=== PATIENT | female | born 1960 | race Caucasian/White ===

== ENCOUNTER 2016-08-19 16:12 | Emergency (ER) | payer MEDICAID ==
[2016-08-19 16:20] VITALS: BP 115/75
--- NOTE | 2016-08-19 16:40 | ED Physician Documentation ---
PD HPI HEENT - Stated complaint Stated Complaint: BRUISING FROM TEETH EXTRACTION - Chief complaint Chief Complaint: General - History obtained from History obtained from: Patient - History of Present Illness Timing - onset: How many weeks ago (1 week ago had dental extractions of all teeth, while on Coumadin. Had some local bleeding of teeth sockets. Noted some bruising develop next day in gum and then more into jaw, anterior neck and then upper chest over next few days. She had not had her COumadin level checked since procedure. Taking pain meds and had run out. She is not taking antibiotics.) Timing - details: Gradual onset (of the bruising) Location: No: Throat Worsens: No: Swalllowing Associated symptoms: No: Fever, Congestion, Rhinorrhea, Cough Recently seen: Clinic (dental extractions 08/12 as noted above.) Review of Systems Constitutional: denies: Fever, Chills Nose: denies: Rhinorrhea / runny nose, Congestion Throat: reports: Dental pain / toothache (extractions sites still hurt). denies : Sore throat Cardiac: denies: Chest pain / pressure, Palpitations Respiratory: denies: Dyspnea, Cough GI: reports: Nausea. denies: Vomiting, Diarrhea Endocrine: reports: Easy bruising / bleeding PD PAST MEDICAL HISTORY - Past Medical History Cardiovascular: Congestive heart failure, Hypertension, Atrial fibrillation Respiratory: COPD - Present Medications Home Medications: Ambulatory Orders Medication Instructions Recorded Confirmed Albuterol 1 neb PO PRN PRN 08/19/16 08/19/16 Budesonide/Formoterol Fumarate 1 inhaler PO BID 08/19/16 08/19/16 [Symbicort 160-4.5 Mcg Inhaler] Carvedilol 25 mg PO 08/19/16 Gabapentin 600 mg PO PRN PRN 08/19/16 08/19/16 Hydrochlorothiazide 25 mg PO DAILY 08/19/16 08/19/16 Hydrocodone/Acetaminophen [[place] 1 each PO Q6H PRN #20 tablet 08/19/16 5-325 Tablet] Lisinopril 40 mg PO DAILY 08/19/16 08/19/16 Warfarin [Coumadin] 10 mg PO DAILY 08/19/16 08/19/16 - Allergies Allergies/Adverse Reactions: Allergies Allergy/AdvReac Type Severity Reaction Status Date / Time codeine Allergy Unknown Verified 08/19/16 16:19 - Social History Does the pt smoke?: Yes Smoking Status: Current every day smoker Does the pt drink ETOH?: No Does the pt have substance abuse?: No - Immunizations Immunizations are current?: Yes - POLST Patient has POLST: No PD ED PE NORMAL - Vitals Vital signs reviewed: Yes - General General: Alert and oriented X 3, Well developed/nourished - HEENT HEENT: Moist mucous membranes, Pharynx benign, Other (post extraction of all her teeth, with healing sockets and no obvious infection/drainage. Gums with some bruising front lower. There is bruising deeper purple and not tender, on lower gums, jaw, underside tongue, anterior neck and anterior upper chest to just below clavicles.) - Neck Neck: Supple, no meningeal sign, No adenopathy - Cardiac Cardiac: RRR, No murmur - Respiratory Respiratory: Clear bilaterally - Derm Derm: Normal color, Warm and dry - Neuro Neuro: Alert and oriented X 3, No motor deficit, Normal speech Results - Vitals Vitals: Vital Signs - 24 hr 08/19/16 16:16 Temperature 36.1 C L Heart Rate 82 Respiratory 18 Rate Blood Pressure 115/75 O2 Saturation 96 Oxygen O2 Source Room air - Labs Labs: Laboratory Tests 08/19/16 17:08 Whole Blood INR 2.2 H PD MEDICAL DECISION MAKING - ED course Complexity details: considered differential (dramatic appearance of bruising around chin/ anterior neck and upper chest, in area of platysma muscle. It is not tender and is deeper purple, c/w old blood coming down with gravity. Gums appear healing without obvious infection. ), d/w patient Departure - Departure Disposition: 01 Home, Self Care Clinical Impression: Anticoagulant long-term use Status post tooth extraction Qualifiers: Tooth loss class: unspecified tooth loss Qualified Code(s): K08.409 - Partial loss of teeth, unspecified cause, unspecified class Facial bruising Qualifiers: Encounter type: initial encounter Qualified Code(s): S00.83XA - Contusion of other part of head, initial encounter Condition: Stable Record reviewed to determine appropriate education?: Yes Instructions: Extraction Tooth Mouth Care After Prescriptions: Hydrocodone/Acetaminophen [[place] 5-325 Tablet] 1 each PO Q6H PRN #20 tablet PRN Reason: Pain Comments: Your INR today is 2.2, so continue your usual Coumadin dosing. Tylenol or Hydrocodone as needed for pains. Continue oral antiseptic rinse 2-3 times daily. The bruising of the face/neck will slowly fade over 1-2 weeks, and is mainly gravity effect of blood from the sinus and jaw area. Discharge Date/Time: 08/19/16 17:31
[2016-08-19] MEDS ORDERED: HYDROcod/ACETAM 5/325 MG TABLET PO STA (17:00)
[2016-08-19] MEDS ORDERED: HYDROcod/ACETAM 5/325 MG TABLET ONE (17:04)
== END 2016-08-19 17:31 | disposition home or self-care (01) ==
LOC: ED 16:12
DX: S00.532A Contusion of oral cavity, initial encounter (principal); S00.83XA Contusion of other part of head, initial encounter; S10.93XA Contusion of unspecified part of neck, initial encounter; S20.219A Contusion of unspecified front wall of thorax, initial encounter; Y84.8 Other medical procedures as the cause of abnormal reaction of the patient, or of later complication, without mention of misadventure at the time of the procedure; Z98.818 Other dental procedure status; Z79.01 Long term (current) use of anticoagulants; I48.91 Unspecified atrial fibrillation; I10 Essential (primary) hypertension; F17.200 Nicotine dependence, unspecified, uncomplicated
CPT/HCPCS: 85610; 99283; A9270

== ENCOUNTER 2019-03-07 21:05 | Outpatient (CLI) | payer MEDICAID | END 2019-03-07 21:06 | disposition critical access hospital (66) | LOC: EMS 21:05 | PROVIDERS: ATTEND Surgery | DX: R29.810 Facial weakness (principal); R53.1 Weakness; R47.81 Slurred speech | CPT/HCPCS: A0425; A0427; A0999 ==

== ENCOUNTER 2019-03-07 21:14 | Emergency (ER) | payer MEDICAID ==
[2019-03-07] MEDS ORDERED: IOVERSOL 320 100 ML VIAL IVP ONE ×3 (21:24→22:05)
--- NOTE | 2019-03-07 21:24 | ED Physician Documentation ---
PD HPI FOCAL NEURO - Stated complaint Stated Complaint: STROKE LIKE SYMPTOMS - History obtained from History obtained from: Patient, Family, EMS - History of Present Illness Timing - onset: Today Timing - duration: Hours Timing - details: Still present Time of symptom onset unknown: Time of onset unknown Severity of deficit: Severe Weakness: Face, Arm, Hand, Left Numbness: No: Face, Arm, Hand, Leg, Foot, Right, Left Associated symptoms: Headache. No: Nausea / vomiting, Seizure Contributing factors: positive: Anticoagulated Baseline status: positive: A&OX3, ambulatory, indep Similar symptoms before: Has not had sx before Recently seen: Not recently seen Review of Systems Constitutional: denies: Fever Eyes: denies: Decreased vision Ears: denies: Ear pain Nose: reports: Congestion Throat: denies: Sore throat Cardiac: denies: Chest pain / pressure, Palpitations Respiratory: reports: Dyspnea, Cough GI: denies: Nausea, Vomiting : denies: Dysuria, Frequency Skin: denies: Rash Musculoskeletal: denies: Neck pain, Back pain, Extremity pain Neurologic: reports: Generalized weakness, Focal weakness, Headache. denies: Difficulty speaking, Head injury, LOC PD PAST MEDICAL HISTORY - Past Medical History Cardiovascular: Congestive heart failure, Hypertension, Atrial fibrillation Respiratory: COPD - Present Medications Home Medications: Ambulatory Orders Medication Instructions Recorded Confirmed Albuterol 1 neb PO PRN PRN 08/19/16 08/19/16 Budesonide/Formoterol Fumarate 1 inhaler PO BID 08/19/16 08/19/16 [Symbicort 160-4.5 Mcg Inhaler] Gabapentin 300 mg PO PRN PRN 08/19/16 08/19/16 Warfarin [Coumadin] 5 mg PO DAILY 08/19/16 08/19/16 carvediloL [Carvedilol] 25 mg PO 08/19/16 hydroCHLOROthiazide 25 mg PO DAILY 08/19/16 08/19/16 [Hydrochlorothiazide] lisinopriL [Lisinopril] 40 mg PO DAILY 08/19/16 08/19/16 Ondansetron [Zuplenz] 4 mg PO QID PRN 03/07/19 03/07/19 hydrOXYzine HCL [Hydroxyzine HCl] 25 mg ORAL DAILY 03/07/19 03/07/19 oxyCODONE [Roxicodone] 5 mg PO Q4-6H 03/07/19 03/07/19 - Allergies Allergies/Adverse Reactions: Allergies Allergy/AdvReac Type Severity Reaction Status Date / Time codeine Allergy Unknown Verified 08/19/16 16:19 - Social History Does the pt smoke?: Yes Smoking Status: Current every day smoker Does the pt drink ETOH?: No Does the pt have substance abuse?: No - Immunizations Immunizations are current?: Yes - POLST Patient has POLST: No PD ED PE NORMAL - Vitals Vital signs reviewed: Yes (hypertensive ) - General General: No acute distress, Well developed/nourished, Other (58-year-old female with a blunted affect and obvious left facial droop has her gaze deviated to the right) - HEENT HEENT: Atraumatic, Other (The eyes are forcefully deviated to the right ) - Neck Neck: Supple, no meningeal sign, No bony TTP - Cardiac Cardiac: No murmur, Other (Irregularly irregular rate and rhythm) - Respiratory Respiratory: No respiratory distress, Clear bilaterally - Abdomen Abdomen: Soft, Non tender - Back Back: No CVA TTP, No spinal TTP - Derm Derm: Normal color, Warm and dry, No rash - Extremities Extremities: No deformity, No edema, No calf tenderness / cord - Neuro Neuro: Normal speech, Other (Acute left hemiparesis with forced right-sided deviation of the eyes.) Eye Opening: To Voice Motor: Obeys Commands Verbal: Oriented GCS Score: 14 - Psych Psych: Normal mood, Normal affect NIHSS - Time Time: 21:20 - Level of Consciousness Level of consciousness: (1) Not alert, but arousable by minor stimulation to obey, or answer LOC Questions: (0) Answers both Q's correct LOC Commands: (0) Performs both correctly - Gaze Best Gaze: (2) Forced deviation - Visual Visual: (0) No loss - Facial Palsy Facial Palsy: (3) Complete paralysis - Motor Arms (both separate) Motor Arm (right): (0) No drift Motor Arm (left): (3) No effort against gravity - Motor Legs (both separate) Motor Leg (right): (0) No drift Motor Leg (left): (3) No effort against gravity - Limb Ataxia Limb Ataxia: (2) Present in 2 limbs - Sensory Sensory: (0) Normal - Best Language Best Language: (0) No aphasia - Dysarthria Dysarthria: (1) [id number] dysarthria - Extinction and Inattention (formally neg Extinction and inattention: (1) Visual,tactile,auditory,spatial, or personal inattention - Total Score/Results Total Score/Result: 16 Results - Vitals Vitals: Vital Signs - 24 hr 03/07/19 03/07/19 03/07/19 21:16 22:50 23:11 Temperature 37 C Heart Rate 80 86 100 Respiratory 18 13 14 Rate Blood Pressure 158/98 H 131/85 H 114/93 H O2 Saturation 96 99 99 Oxygen O2 Source Room air - EKG (time done) 2151 Rate: Rate (enter#) (89) Rhythm: Atrial fibrillation Ischemia: Normal ST segments Compare to prior EKG: Old EKG unavailable Computer interpretation: Agree with computer - Labs Labs: Laboratory Tests 03/07/19 03/07/19 03/07/19 22:00 22:30 22:30 WBC 9.3 RBC 4.26 Hgb 13.4 Hct 40.5 MCV 95.1 MCH 31.5 H MCHC 33.1 RDW 12.8 Plt Count 228 MPV 9.8 Neut # (Auto) 5.5 Lymph # (Auto) 2.6 [place] # (Auto) 0.9 Eos # (Auto) 0.2 Baso # (Auto) 0.1 Absolute Nucleated RBC 0.00 Nucleated RBC % 0.0 PT 18.9 H INR 1.7 H Sodium Potassium Chloride Carbon Dioxide Anion Gap BUN Creatinine Estimated GFR (MDRD) Glucose Lactic Acid Calcium Total Bilirubin AST ALT Alkaline Phosphatase Total Protein Albumin Globulin Albumin/Globulin Ratio Lipase Urine Color YELLOW Urine Clarity CLEAR Urine pH 6.5 Ur Specific [place] <=1.005 Urine Protein NEGATIVE Urine Glucose (UA) NEGATIVE Urine Ketones NEGATIVE Urine Occult Blood TRACE-INTA Urine Nitrite NEGATIVE Urine Bilirubin NEGATIVE Urine Urobilinogen 0.2 (NORMAL) Ur Leukocyte Esterase SMALL H Urine RBC 0-5 Urine WBC 11-25 H Ur Squamous Epith Cells RARE Squamous Urine Bacteria Many H Ur Microscopic Review INDICATED Urine Culture Comments INDICATED 03/07/19 03/07/19 22:30 22:30 WBC RBC Hgb Hct MCV MCH MCHC RDW Plt Count MPV Neut # (Auto) Lymph # (Auto) [place] # (Auto) Eos # (Auto) Baso # (Auto) Absolute Nucleated RBC Nucleated RBC % PT INR Sodium 128 L Potassium 4.3 Chloride 91 L Carbon Dioxide 26 Anion Gap 11.0 BUN 38 H Creatinine 1.7 H Estimated GFR (MDRD) 31 L Glucose 83 Lactic Acid 0.9 Calcium 8.9 Total Bilirubin 1.0 AST 27 ALT 20 Alkaline Phosphatase 78 Total Protein 7.1 Albumin 3.8 Globulin 3.3 Albumin/Globulin Ratio 1.2 Lipase 24 Urine Color Urine Clarity Urine pH Ur Specific [place] Urine Protein Urine Glucose (UA) Urine Ketones Urine Occult Blood Urine Nitrite Urine Bilirubin Urine Urobilinogen Ur Leukocyte Esterase Urine RBC Urine WBC Ur Squamous Epith Cells Urine Bacteria Ur Microscopic Review Urine Culture Comments - Rads (name of study) CT head w/o Radiology: Prelim report reviewed (Impression: 1. Very large acute to subacute right MCA territory ischemic infarct, aspects 1-2. 2 No acute hemorrhage.), EMP read indepedently, See rad report CTA head Radiology: Prelim report reviewed (Impression: 1. No abnormal brain parenchymal enhancement. 2. Patent dural venous sinuses. 3. 4 mm field defect in the posterior division of the right M2 segment with 1 mm filling duct defect in the anterior division of the right M2 segment. These findings are suspicious for acute thromboembolus. Distal right MCA vessels are patent. 4. No evidence of aneurysm, AVM, or critical stenosis in the remaining intracranial and extracra nial arteries.), EMP read indepedently, See rad report CTA neck Radiology: Prelim report reviewed (Impression: 1. No abnormal brain parenchymal enhancement. 2. Patent dural venous sinuses. 3. 4 mm filling defect in the posterior division of the right M2 segment with a 1 mm filling defect in the anterior division of the right M2 segment. These findings are suspicious for acute thromboembolus. Distal right MCA vessels are patent. 4. No evidence of aneurysm, AVM, or critical stenosis in the remaining intracranial and extracranial arteries.), EMP read indepedently, See rad report chest Radiology: Prelim report reviewed (Impression: 1. Prominent bronchovascular markings which may be related to mild vascular congestion with interstitial edema. 2. Mild opacity in the right mid lung, possibly atelectasis or subtle infiltrate. 3. Mild enlargement of cardiac silhouette.), EMP read indepedently, See rad report Procedures - IVC sono (time) 5321 Bedside IVC sono: IVC measures (cm) (1.49), IVC collapsed c insp (cm) (complete), Dehydration (mild at 500ml deficit estimated.) PD MEDICAL DECISION MAKING - ED course Complexity details: reviewed results, re-evaluated patient, considered differential, d/w patient, d/w family ED course: 58-year-old female with a recent URI that was improving has been found by her family today in her room sitting in the chair they assume since last night. She has forced deviation of her gaze to the right and left hemiparesis. Her CT study is consistent with a right MCA distribution stroke and there are clots present. The extent of the ischemia is extensive and the exact time of onset unknown. The neurologist Dr. Jacobo Burger at [facility] is consulted in the case and recommends conservative treatment. He recommends postop care to be done here. The hospitalist here is consulted in the case and he is reluctant to care for the patient here as she is young and has an extensive stroke. He is concerned about complications occurring acutely. The stroke doctor Dr. Burger at [facility] calls us back here after reviewing her images and recommends she be transferred to their service. The patient has additional findings including bacteria and white blood cells in the urine and an infiltrate on her chest x-ray in the right middle lobe. She is administered Rocephin intravenously. Her volume is just below normal with IVC of 1.5 cm collapsing completely with respiration.She is administered saline a 500 mL bolus and [address] Hampton the hospitalist at [facility] be the accepting physician and recommends administration of aspirin. Departure - Departure Disposition: 02 Transfer Acute Care Hosp Clinical Impression: Cerebrovascular accident (CVA) Qualifiers: CVA mechanism: embolism Precerebral and cerebral artery: middle cerebral artery Laterality of affected vessel: right Qualified Code(s): I63.411 - Cerebral infarction due to embolism of right middle cerebral artery UTI (urinary tract infection) Qualifiers: Urinary tract infection type: acute cystitis Hematuria presence: without hematuria Qualified Code(s): N30.00 - Acute cystitis without hematuria Pneumonia Qualifiers: Pneumonia type: due to unspecified organism Laterality: right Lung location: middle lobe of lung Qualified Code(s): J18.9 - Pneumonia, unspecified organism Condition: Serious
--- NOTE | 2019-03-07 22:05 | CT Report ---
Reason: L sided weakness Procedure Date: 03/07/2019 Accession Number: [id number] / [id number] Procedure: CT - Head W/O Stroke Protocol CPT Code: Final Report FULL RESULT: EXAM: CT HEAD EXAM DATE: 03/07/2019 09:26 PM. CLINICAL HISTORY: Left side weakness. COMPARISON: None. TECHNIQUE: Multiaxial CT images were obtained from the foramen magnum to the vertex. Reformats: Sagittal and coronal. IV contrast: None. In accordance with CT protocol optimization, one or more of the following dose reduction techniques were utilized for this exam: automated exposure control, adjustment of mA and/or KV based on patient size, or use of iterative reconstructive technique. FINDINGS: Parenchyma: No acute hemorrhage. Extensive confluent abnormal hypodensity with mild swelling involving much of the right MCA territory including frontal, temporal and parietal cortex, insula/operculum and basal ganglia. Findings are consistent with large acute to subacute ischemic infarct. Aspects 1-2. Small old inferior left cerebellar infarct, approximately 8 mm. Overall normal brain volume for age. Extraaxial Spaces: Developing sulcal effacement from the swelling and mass-effect associated with presumed infarct of the right cerebral hemisphere. No abnormal expansile subdural collection. Ventricles: No hydrocephalus. Sinuses and Orbits: Borderline findings of bilateral exophthalmos. Relatively prominent intraorbital fat. No other focal space-occupying intraorbital lesion. No acute sinus or mastoid opacity. Bones: No evidence of fracture or calvarial defect. Other: None. IMPRESSION: 1. Very large acute to subacute right MCA territory ischemic infarct, aspects 1-2. 2. No acute hemorrhage. RADIA The critical test notification system was initiated by Dr. Yuan Cadet at 09:55 PM on 03/07/2019. The above critical test findings were discussed with Dr. Chon Sultana by Dr. Yuan Cadet at 09:57 PM on 03/07/2019.
[2019-03-07 22:11] LABS: BILIRUBIN,URINE NEGATIVE (NEGATIVE); GLUCOSE, URINE (UA) NEGATIVE (NEGATIVE); KETONES,URINE (UA) NEGATIVE (NEGATIVE); LEUKOCYTE ESTERASE, URINE SMALL (NEGATIVE); NITRITE,URINE NEGATIVE (NEGATIVE); OCCULT BLOOD,URINE TRACE-INTA (NEGATIVE); PH,URINE 6.5 PH (5.0-7.5); PROTEIN,URINE NEGATIVE (NEGATIVE); UROBILINOGEN,URINE 0.2 (NORMAL) E.U./dL (NORMAL)
[2019-03-07 22:12] LABS: CLARITY,URINE CLEAR (CLEAR)
[2019-03-07 22:19] LABS: BACTERIA,URINE Many /HPF (None Seen); RBC,URINE 0-5 /HPF (0-5); SQUAMOUS EPITHELIAL CELL,UR RARE Squamous (<= Few)
--- NOTE | 2019-03-07 22:21 | CT Report ---
Reason: L sided weakness Procedure Date: 03/07/2019 Accession Number: [id number] / [id number] Procedure: CT - ANGIO HEAD W/WO CPT Code: Final Report FULL RESULT: EXAM: CT ANGIOGRAM HEAD AND NECK. CT SCAN HEAD WITH CONTRAST. EXAM DATE: 03/07/2019 09:48 PM. CLINICAL HISTORY: Left-sided weakness. COMPARISON: HEAD W/O STROKE PROTOCOL 03/07/2019 9:26 PM NECK ANGIO 03/07/2019 9:43 PM. TECHNIQUE: Routine axial helical CTA imaging was performed from the aortic arch through the [place]. Routine axial CT imaging of the head was performed following contrast administration. Reconstructions: Routine multiplanar 3D MIP reconstructions. IV contrast: Opti 320 80 mL. NASCET Criteria are used for stenosis measurements. In accordance with CT protocol optimization, one or more of the following dose reduction techniques were utilized for this exam: automated exposure control, adjustment of mA and/or KV based on patient size, or use of iterative reconstructive technique. FINDINGS: No abnormal brain parenchymal enhancement is appreciated. CT ANGIOGRAM EXTRACRANIAL CIRCULATION: Mild calcified plaque is present at the aortic arch. However, no high-grade stenosis of the great vessel origins is seen. Right Carotid: The common, internal, and external carotid arteries are patent. Minimal calcified plaque is seen at the carotid bifurcation without hemodynamically significant stenosis. Left Carotid: The common, internal, and external carotid arteries are patent. Minimal calcified plaque is noted at the carotid bifurcation without hemodynamically significant stenosis. Vertebrals: Calcified plaque is present at the origin of the left vertebral artery which were arises directly from the aortic arch with stenosis measuring approximately 50% (image 73, series 4). The right vertebral artery origin is widely patent. The right vertebral artery is dominant. No hemodynamically significant stenosis is seen in the remaining cervical courses. CT ANGIOGRAM INTRACRANIAL CIRCULATION: The internal carotid arteries are patent from the superior cervical to the supraclinoid portions. Minimal calcified plaque is present in the bilateral carotid siphons without stenosis. The right A1, A2, M1, and M2 segments are patent. The right A1 and A2 segments are patent. There is a filling defect within the right posterior division of the M2 segment 4 mm length (image 62, series 8) and a 1 mm filling defect in the anterior division of the right M2 segment (image 62, series 8), suspicious for acute thromboembolism. Distal right MCA branches are opacified. A normal caliber anterior communicating artery is present. In the posterior circulation, the bilateral V4 segments are patent with right-sided dominance. There is a probable left AICA/PICA variant. The right PICA is well demonstrated. The basilar artery is widely patent throughout its course to the terminus. There is normal contrast opacification in the superior cerebellar and posterior cerebral arteries. Small bilateral posterior communicate arteries are present. The dural venous sinuses are patent. Other: Subsegmental atelectasis is noted in the right upper lung. The airways patent. Mild to moderate degenerative changes are present at the cervical spine with levoscoliosis in the upper thoracic region. No acute abnormality is seen in the remaining soft tissues of the neck. IMPRESSION: 1. No abnormal brain parenchymal enhancement. 2. Patent dural venous sinuses. 3. 4 mm filling defect in the posterior division of the right M2 segment with 1 mm filling defect in the anterior division of the right M2 segment. These findings are suspicious for acute thromboembolus. Distal right MCA vessels are patent. 4. No evidence of aneurysm, AVM, or critical stenosis in the remaining intracranial and extracranial arteries. RADIA The critical result notification system was initiated by Dr. Ledy Velazquez at 10:12 PM on 03/07/2019. The above critical result findings were discussed with Dr. Sultana by Dr. Ledy Velazquez at 10:14 PM on 03/07/2019.
[2019-03-07] MEDS ORDERED: cefTRIAXone 1 GM in SODIUM CHLORIDE 0.9% MINIBAG 100 ML IV STA (22:30)
[2019-03-07] MEDS ORDERED: GABAPENTIN 100 MG CAPSULE PO STA (22:30)
--- NOTE | 2019-03-07 22:30 | XRAY Report ---
Reason: cough weakness Procedure Date: 03/07/2019 Accession Number: [id number] / [id number] Procedure: XR - Chest 1 View X-Ray CPT Code: 52034 Final Report FULL RESULT: EXAM: CHEST RADIOGRAPHY EXAM DATE: 03/07/2019 09:59 PM. CLINICAL HISTORY: Cough weakness. COMPARISON: None. TECHNIQUE: 1 view. FINDINGS: Lungs/Pleura: Prominent bronchovascular markings throughout the lungs with mild opacity in right mid lung along the region of right minor fissure. No lobar consolidation. No significant pleural effusion or pneumothorax. Mediastinum: Mild enlargement of cardiac silhouette. Atherosclerosis at aortic arch. Other: None. IMPRESSION: 1. Prominent bronchovascular markings which may be related to mild vascular congestion with interstitial edema. 2. Mild opacity in right mid lung, possibly atelectasis or subtle infiltrate. 3. Mild enlargement of cardiac silhouette. RADIA
[2019-03-07 22:36] LABS: BASOPHILS # (AUTO) 0.1 10^3/uL (0.0-0.1); BASOPHILS % (AUTO) 0.5 %; EOSINOPHILS # (AUTO) 0.2 10^3/uL (0.0-0.7); EOSINOPHILS % (AUTO) 1.7 %; HGB - HEMOGLOBIN 13.4 g/dL (12.0-16.0); LYMPHOCYTES # (AUTO) 2.6 10^3/uL (1.5-3.5); LYMPHOCYTES % (AUTO) 27.9 %; MEAN CORPUSCULAR HEMOGLOBIN 31.5 pg (27.0-31.0); MEAN CORPUSCULAR HGB CONC 33.1 g/dL (32.0-36.0); MEAN CORPUSCULAR VOLUME 95.1 fL (81.0-99.0); MEAN PLATELET VOLUME 9.8 fL (7.9-10.8); MONOCYTES # (AUTO) 0.9 10^3/uL (0.0-1.0); MONOCYTES % (AUTO) 9.4 %; NEUTROPHILS # (AUTO) 5.5 10^3/uL (1.5-6.6); NEUTROPHILS % (AUTO) 59.6 %; PLT - PLATELET COUNT 228 10^3/uL (130-450); RED BLOOD COUNT 4.26 10^6/uL (4.20-5.40); RED CELL DISTRIBUTION WIDTH 12.8 % (12.0-15.0); WHITE BLOOD COUNT 9.3 x10^3/uL (4.8-10.8)
[2019-03-07 22:43] LABS: INR 1.7 (0.8-1.2); PT - PROTHROMBIN TIME 18.9 secs (9.9-12.6)
[2019-03-07 22:51] LABS: ALBUMIN 3.8 g/dL (3.2-5.5); ALBUMIN/GLOBULIN RATIO 1.2 (1.0-2.2); CALCIUM 8.9 mg/dL (8.5-10.3); CREATININE 1.7 mg/dL (0.4-1.0); TOTAL PROTEIN 7.1 g/dL (6.7-8.2)
[2019-03-07] MEDS ORDERED: SODIUM CHLORIDE 0.9% 1,000 ML IV ONE (23:43)
[2019-03-07] MEDS ORDERED: SODIUM CHLORIDE 0.9% 500 ML IV ONE (23:43)
[2019-03-07] MEDS ORDERED: ASPIRIN CHEW 81 MG TABLET PO STA (23:47)
[2019-03-08] MEDS ORDERED: ACETAMINOPHEN 1,000 MG/100 ML 100 ML IV STA (04:20)
[2019-03-08 05:01] VITALS: BP 153/94
== END 2019-03-08 06:20 | disposition short-term general hospital (02) ==
LOC: EDUNIT# → ED 21:14
DX: I63.411 Cerebral infarction due to embolism of right middle cerebral artery (principal); R29.810 Facial weakness; G81.94 Hemiplegia, unspecified affecting left nondominant side; R29.716 NIHSS score 16; E86.0 Dehydration; N30.00 Acute cystitis without hematuria; J18.9 Pneumonia, unspecified organism; I10 Essential (primary) hypertension; I48.91 Unspecified atrial fibrillation; Z79.01 Long term (current) use of anticoagulants; J44.9 Chronic obstructive pulmonary disease, unspecified; F17.200 Nicotine dependence, unspecified, uncomplicated
CPT/HCPCS: 36415; 70450; 70496; 70498; 71045; 80053; 81001; 83605; 83690; 85025; 85610; 87040; 87077; 87086; 87181; 93005; 96361; 96365; 96367; 99285; A9270; J0131; Q9967; 81003

== ENCOUNTER 2019-07-20 08:00 | Outpatient (CLI) | payer MEDICAID ==
[2019-07-20 12:18] LABS: BASOPHILS % (AUTO) 0.5 %; EOSINOPHILS # (AUTO) 0.2 10^3/uL (0.0-0.7); EOSINOPHILS % (AUTO) 2.1 %; HGB - HEMOGLOBIN 13.7 g/dL (12.0-16.0); LYMPHOCYTES # (AUTO) 2.5 10^3/uL (1.5-3.5); LYMPHOCYTES % (AUTO) 32.6 %; MEAN CORPUSCULAR HEMOGLOBIN 31.2 pg (27.0-31.0); MEAN CORPUSCULAR HGB CONC 33.2 g/dL (32.0-36.0); MEAN CORPUSCULAR VOLUME 94.1 fL (81.0-99.0); MEAN PLATELET VOLUME 11.6 fL (7.9-10.8); MONOCYTES # (AUTO) 0.6 10^3/uL (0.0-1.0); MONOCYTES % (AUTO) 7.3 %; NEUTROPHILS # (AUTO) 4.4 10^3/uL (1.5-6.6); NEUTROPHILS % (AUTO) 57.1 %; PLT - PLATELET COUNT 154 10^3/uL (130-450); RED BLOOD COUNT 4.39 10^6/uL (4.20-5.40); RED CELL DISTRIBUTION WIDTH 13.7 % (12.0-15.0); WHITE BLOOD COUNT 7.7 x10^3/uL (4.8-10.8)
[2019-07-20 12:31] LABS: ALBUMIN 3.5 g/dL (3.2-5.5); ALBUMIN/GLOBULIN RATIO 0.9 (1.0-2.2); CALCIUM 9.5 mg/dL (8.5-10.3); CREATININE 0.8 mg/dL (0.4-1.0); TOTAL PROTEIN 7.3 g/dL (6.7-8.2)
== END 2019-07-20 23:59 | disposition home or self-care (01) ==
LOC: LAB.WCP 08:00
PROVIDERS: ATTEND Family Medicine
DX: I10 Essential (primary) hypertension (principal); E05.00 Thyrotoxicosis with diffuse goiter without thyrotoxic crisis or storm
CPT/HCPCS: 80053; 84443; 85025

== ENCOUNTER 2019-08-11 08:00 | Outpatient (CLI) | payer MEDICAID ==
[2019-08-11 09:55] LABS: BILIRUBIN,URINE NEGATIVE (NEGATIVE); GLUCOSE, URINE (UA) NEGATIVE (NEGATIVE); KETONES,URINE (UA) NEGATIVE (NEGATIVE); LEUKOCYTE ESTERASE, URINE SMALL (NEGATIVE); NITRITE,URINE POSITIVE (NEGATIVE); OCCULT BLOOD,URINE TRACE-INTA (NEGATIVE); PH,URINE 5.5 PH (5.0-7.5); PROTEIN,URINE NEGATIVE (NEGATIVE); UROBILINOGEN,URINE 0.2 (NORMAL) E.U./dL (NORMAL)
[2019-08-11 10:03] LABS: CLARITY,URINE CLEAR (CLEAR)
[2019-08-11 10:13] LABS: BACTERIA,URINE Few /HPF (None Seen); RBC,URINE 0-5 /HPF (0-5); SQUAMOUS EPITHELIAL CELL,UR FEW Squamous (<= Few)
== END 2019-08-11 23:59 | disposition home or self-care (01) ==
LOC: LAB.R 08:00
PROVIDERS: ATTEND Family Medicine
DX: R30.0 Dysuria (principal)
CPT/HCPCS: 81001; 81003; 87077; 87086; 87181

== ENCOUNTER 2019-08-31 10:50 | Outpatient (CLI) | payer MEDICAID | END 2019-08-31 23:59 | disposition home or self-care (01) | LOC: LAB.R 10:50 | PROVIDERS: ATTEND Family Medicine | DX: Z11.59 Encounter for screening for other viral diseases (principal) | CPT/HCPCS: 81599 ==

== ENCOUNTER 2019-09-05 14:03 | Outpatient (CLI) | payer MEDICAID | END 2019-09-05 14:04 | disposition critical access hospital (66) | LOC: EMS 14:03 | PROVIDERS: ATTEND Surgery | DX: M79.602 Pain in left arm (principal); R30.9 Painful micturition, unspecified; R06.02 Shortness of breath; R51 Headache | CPT/HCPCS: A0425; A0429; A0999 ==

== ENCOUNTER 2019-09-05 14:17 | Emergency (ER) | payer MEDICAID ==
[2019-09-05 15:08] LABS: BASOPHILS # (AUTO) 0.1 10^3/uL (0.0-0.1); BASOPHILS % (AUTO) 0.7 %; EOSINOPHILS # (AUTO) 0.2 10^3/uL (0.0-0.7); EOSINOPHILS % (AUTO) 2.1 %; HGB - HEMOGLOBIN 13.9 g/dL (12.0-16.0); LYMPHOCYTES # (AUTO) 3.3 10^3/uL (1.5-3.5); LYMPHOCYTES % (AUTO) 38.8 %; MEAN CORPUSCULAR HEMOGLOBIN 32.4 pg (27.0-31.0); MEAN CORPUSCULAR HGB CONC 33.3 g/dL (32.0-36.0); MEAN CORPUSCULAR VOLUME 97.4 fL (81.0-99.0); MEAN PLATELET VOLUME 10.6 fL (7.9-10.8); MONOCYTES # (AUTO) 0.7 10^3/uL (0.0-1.0); MONOCYTES % (AUTO) 8.2 %; NEUTROPHILS # (AUTO) 4.3 10^3/uL (1.5-6.6); NEUTROPHILS % (AUTO) 49.9 %; PLT - PLATELET COUNT 194 10^3/uL (130-450); RED BLOOD COUNT 4.29 10^6/uL (4.20-5.40); RED CELL DISTRIBUTION WIDTH 14.3 % (12.0-15.0); WHITE BLOOD COUNT 8.6 x10^3/uL (4.8-10.8)
[2019-09-05 15:18] LABS: CALCIUM 9.3 mg/dL (8.5-10.3); CREATININE 0.7 mg/dL (0.4-1.0)
[2019-09-05 16:24] LABS: BILIRUBIN,URINE NEGATIVE (NEGATIVE); CLARITY,URINE CLEAR (CLEAR); GLUCOSE, URINE (UA) NEGATIVE (NEGATIVE); KETONES,URINE (UA) NEGATIVE (NEGATIVE); LEUKOCYTE ESTERASE, URINE SMALL (NEGATIVE); NITRITE,URINE POSITIVE (NEGATIVE); OCCULT BLOOD,URINE NEGATIVE (NEGATIVE); PROTEIN,URINE NEGATIVE (NEGATIVE); UROBILINOGEN,URINE 0.2 (NORMAL) E.U./dL (NORMAL)
[2019-09-05 16:36] LABS: BACTERIA,URINE None Seen /HPF (None Seen); RBC,URINE None Seen /HPF (0-5); SQUAMOUS EPITHELIAL CELL,UR NONE SEEN (<= Few)
[2019-09-05] MEDS ORDERED: cefTRIAXone 1 GM VIAL IVP STA (16:44)
--- NOTE | 2019-09-05 16:46 | ED Physician Documentation ---
History of Present Illness - Stated complaint Stated Complaint: COPD - Chief complaint Chief Complaint: Resp - History obtained from History obtained from: Patient, EMS - History of Present Illness Timing: Today Pain level max: 0 Pain level now: 0 - Additonal information Additional information: Patient complains of dysuria, urgency, frequency. History of recurrent UTIs. No other complaints today. No cough. No fever. No dyspnea. worse with urination. Better with rest. Review of Systems Constitutional: denies: Fever, Chills Respiratory: denies: Cough GI: denies: Abdominal Pain, Nausea, Vomiting, Diarrhea : reports: Dysuria, Frequency, Hesitancy Skin: denies: Rash Musculoskeletal: denies: Neck pain, Back pain Neurologic: denies: Headache PD PAST MEDICAL HISTORY - Past Medical History Cardiovascular: Congestive heart failure, Hypertension, Atrial fibrillation Respiratory: COPD - Present Medications Home Medications: Ambulatory Orders Medication Instructions Recorded Confirmed Albuterol 1 neb PO PRN PRN 08/19/16 08/19/16 Budesonide/Formoterol Fumarate 1 inhaler PO BID 08/19/16 08/19/16 [Symbicort 160-4.5 Mcg Inhaler] Gabapentin 300 mg PO PRN PRN 08/19/16 08/19/16 Warfarin [Coumadin] 5 mg PO DAILY 08/19/16 08/19/16 carvediloL [Carvedilol] 25 mg PO 08/19/16 hydroCHLOROthiazide 25 mg PO DAILY 08/19/16 08/19/16 [Hydrochlorothiazide] lisinopriL [Lisinopril] 40 mg PO DAILY 08/19/16 08/19/16 Ondansetron [Zuplenz] 4 mg PO QID PRN 03/07/19 03/07/19 hydrOXYzine HCL [Hydroxyzine HCl] 25 mg ORAL DAILY 03/07/19 03/07/19 oxyCODONE [Roxicodone] 5 mg PO Q4-6H 03/07/19 03/07/19 Cefdinir 300 mg PO BID #20 capsule 09/05/19 - Allergies Allergies/Adverse Reactions: Allergies Allergy/AdvReac Type Severity Reaction Status Date / Time codeine Allergy Unknown Verified 09/05/19 14:31 - Social History Does the pt smoke?: Yes Smoking Status: Current every day smoker Does the pt drink ETOH?: No Does the pt have substance abuse?: No - Immunizations Immunizations are current?: Yes - POLST Patient has POLST: No PD ED PE NORMAL - Vitals Vital signs reviewed: Yes - General General: Alert and oriented X 3, No acute distress - HEENT HEENT: Moist mucous membranes - Neck Neck: Supple, no meningeal sign - Cardiac Cardiac: RRR, Strong equal pulses - Respiratory Respiratory: No respiratory distress, Clear bilaterally - Abdomen Abdomen: Soft, Non tender, Non distended - Back Back: No CVA TTP, No spinal TTP - Derm Derm: Warm and dry, No rash - Extremities Extremities: No tenderness to palpate - Neuro Neuro: Alert and oriented X 3 - Psych Psych: Normal mood, Normal affect Results - Vitals Vitals: Vital Signs - 24 hr 09/05/19 09/05/19 09/05/19 14:31 16:37 18:00 Temperature 36.8 C 36.7 C Heart Rate 63 67 70 Respiratory 18 20 17 Rate Blood Pressure 120/70 133/85 H 131/94 H O2 Saturation 98 94 97 Oxygen O2 Source Room air - Labs Labs: Laboratory Tests 09/05/19 09/05/19 09/05/19 15:00 15:00 16:15 WBC 8.6 RBC 4.29 Hgb 13.9 Hct 41.8 MCV 97.4 MCH 32.4 H MCHC 33.3 RDW 14.3 Plt Count 194 MPV 10.6 Neut # (Auto) 4.3 Lymph # (Auto) 3.3 [place] # (Auto) 0.7 Eos # (Auto) 0.2 Baso # (Auto) 0.1 Absolute Nucleated RBC 0.00 Nucleated RBC % 0.0 Sodium 140 Potassium 4.3 Chloride 104 Carbon Dioxide 29 Anion Gap 7.0 BUN 19 Creatinine 0.7 Estimated GFR (MDRD) 85 L Glucose 84 Calcium 9.3 Urine Color YELLOW Urine Clarity CLEAR Urine pH 5.0 Ur Specific [place] 1.020 Urine Protein NEGATIVE Urine Glucose (UA) NEGATIVE Urine Ketones NEGATIVE Urine Occult Blood NEGATIVE Urine Nitrite POSITIVE H Urine Bilirubin NEGATIVE Urine Urobilinogen 0.2 (NORMAL) Ur Leukocyte Esterase SMALL H Urine RBC None Seen Urine WBC 11-25 H Ur Squamous Epith Cells NONE SEEN Urine Bacteria None Seen Ur Microscopic Review INDICATED Urine Culture Comments INDICATED PD MEDICAL DECISION MAKING - ED course Complexity details: reviewed results, re-evaluated patient, considered differential, d/w patient ED course: Patient with a UTI. No significant lab abnormalities. Will place on antibiotics. Patient is well-appearing, nontoxic. Afebrile. No sepsis. Patient counseled regarding signs and symptoms for which I believe and urgent re-evaluation would be necessary. Patient with good understanding of and agreement to plan and is comfortable going home at this time This document was made in part using voice recognition software. While efforts are made to proofread this document, sound alike and grammatical errors may occur. Departure - Departure Disposition: 01 Home, Self Care Clinical Impression: UTI (urinary tract infection) Qualifiers: Urinary tract infection type: acute cystitis Hematuria presence: without hematuria Qualified Code(s): N30.00 - Acute cystitis without hematuria Condition: Good Instructions: ED UTI Cystitis Female Follow-Up: SAAD SPRAGUE DO [Primary Care Provider] - Within 1 week Prescriptions: Cefdinir 300 mg PO BID #20 capsule Comments: Take all antibiotics until gone. Return if you worsen. Discharge Date/Time: 09/05/19 19:02
[2019-09-05] MEDS ORDERED: LIDOCAINE 1% 2 ML VIAL MC ONE (17:10)
[2019-09-05] MEDS ORDERED: cefTRIAXone 1 GM VIAL IM STA (17:10)
[2019-09-05] MEDS ORDERED: LIDOCAINE 1% 2 ML VIAL ONE (17:18)
[2019-09-05 18:37] VITALS: BP 131/94
== END 2019-09-05 19:02 | disposition home or self-care (01) ==
LOC: EDUNIT# → ED 14:17
DX: N30.00 Acute cystitis without hematuria (principal); F17.200 Nicotine dependence, unspecified, uncomplicated
CPT/HCPCS: 36415; 51701; 80048; 81001; 81003; 85025; 87077; 87086; 87181; 99284

== ENCOUNTER 2019-09-05 19:13 | Outpatient (CLI) | payer MEDICAID | END 2019-09-05 19:14 | disposition home or self-care (01) | LOC: EMS 19:13 | PROVIDERS: ATTEND Surgery | DX: N39.0 Urinary tract infection, site not specified (principal); I69.354 Hemiplegia and hemiparesis following cerebral infarction affecting left non-dominant side; Z74.01 Bed confinement status | CPT/HCPCS: A0425; A0428 ==

== ENCOUNTER 2019-09-14 13:11 | Outpatient (CLI) | payer MEDICAID | END 2019-09-14 13:12 | disposition critical access hospital (66) | LOC: EMS 13:11 | PROVIDERS: ATTEND Surgery | DX: I95.9 Hypotension, unspecified (principal); R53.1 Weakness | CPT/HCPCS: A0425; A0429 ==

== ENCOUNTER 2019-09-14 13:23 | Emergency (ER) | payer MEDICAID ==
[2019-09-14] MEDS ORDERED: SODIUM CHLORIDE 0.9% 1,000 ML IV STA ×2 (13:41→15:27)
[2019-09-14 14:03] LABS: BASOPHILS # (AUTO) 0.1 10^3/uL (0.0-0.1); EOSINOPHILS # (AUTO) 0.2 10^3/uL (0.0-0.7); EOSINOPHILS % (AUTO) 2.2 %; HGB - HEMOGLOBIN 13.4 g/dL (12.0-16.0); LYMPHOCYTES # (AUTO) 2.7 10^3/uL (1.5-3.5); LYMPHOCYTES % (AUTO) 28.5 %; MEAN CORPUSCULAR HEMOGLOBIN 31.2 pg (27.0-31.0); MEAN CORPUSCULAR HGB CONC 30.9 g/dL (32.0-36.0); MEAN CORPUSCULAR VOLUME 100.7 fL (81.0-99.0); MONOCYTES # (AUTO) 0.9 10^3/uL (0.0-1.0); MONOCYTES % (AUTO) 9.1 %; NEUTROPHILS # (AUTO) 5.5 10^3/uL (1.5-6.6); PLT - PLATELET COUNT 161 10^3/uL (130-450); RED CELL DISTRIBUTION WIDTH 14.4 % (12.0-15.0); WHITE BLOOD COUNT 9.4 x10^3/uL (4.8-10.8)
[2019-09-14 14:13] LABS: CALCIUM 9.5 mg/dL (8.5-10.3); CREATININE 0.8 mg/dL (0.4-1.0)
--- NOTE | 2019-09-14 14:20 | ED Physician Documentation ---
History of Present Illness - Stated complaint Stated Complaint: LOW BLOOD PRESSURE - Chief complaint Chief Complaint: General - History obtained from History obtained from: Patient - Additonal information Additional information: 59-year-old female who has a history of htn, heart failure and atrial fib who unfortunately had a stroke in February 2019 here with chief complaint of hypotension and fatigue at home. Per EMS notes that she has had systolic blood pressures in the 70s and 80s. Patient reports that she has some left-sided weakness baseline since the stroke but her entire left side hurts. She does feel somewhat short of breath but denies chest pain. She has been taking Cipro recently for a urinary tract infection but still continues to have dysuria. Unsure if she has had fevers. endorses chills. No cough. No vomiting or diarrhea Pt does endorse a headache but I am unclear hwo long it has been worsening. She has no new focal neuro deficits adn I do not baselien left sided deficits pt was seen in the ED 09/05/19 for urinary symptoms and begun on cefdinir meds: budesonide, seroquel, statin, cipro, baclofen, zofran, metoprolol, gabapentin, coumadin, oxycodone, asa, lisinopril I have attempted to call the daughter multiple times to elicit history, but there was no answer and no way to leave a message Review of Systems Constitutional: reports: Chills, Fatigue. denies: Fever Cardiac: denies: Chest pain / pressure, Palpitations, Pedal edema, Calf pain Respiratory: reports: Dyspnea. denies: Cough, Hemoptysis, Wheezing GI: denies: Abdominal Pain, Abdominal Swelling, Nausea, Vomiting, Diarrhea : reports: Dysuria Skin: denies: Rash, Lesions Neurologic: reports: Focal weakness (left side). denies: Numbness, Difficulty speaking, Confused, Altered mental status PD PAST MEDICAL HISTORY - Past Medical History Cardiovascular: Congestive heart failure, Hypertension, Atrial fibrillation Respiratory: COPD - Present Medications Home Medications: Ambulatory Orders Medication Instructions Recorded Confirmed Budesonide/Formoterol Fumarate 1 inhaler PO BID 08/19/16 08/19/16 [Symbicort 160-4.5 Mcg Inhaler] Gabapentin 300 mg PO PRN PRN 08/19/16 08/19/16 Warfarin [Coumadin] 5 mg PO DAILY 08/19/16 08/19/16 lisinopriL [Lisinopril] 40 mg PO DAILY 08/19/16 08/19/16 Ondansetron [Zuplenz] 4 mg PO QID PRN 03/07/19 03/07/19 oxyCODONE [Roxicodone] 5 mg PO Q4-6H 03/07/19 03/07/19 Atorvastatin [Lipitor] 09/14/19 Baclofen 09/14/19 Ciprofloxacin [Cipro] 09/14/19 QUEtiapine [SEROquel] 09/14/19 - Allergies Allergies/Adverse Reactions: Allergies Allergy/AdvReac Type Severity Reaction Status Date / Time codeine Allergy Unknown Verified 09/14/19 13:30 - Social History Does the pt smoke?: Yes Smoking Status: Current every day smoker Does the pt drink ETOH?: No Does the pt have substance abuse?: No - Immunizations Immunizations are current?: Yes - POLST Patient has POLST: No PD ED PE EXPANDED - General General: Alert, Anxious, In Pain - HEENT HEENT: PERRL. No: Atraumatic (Noted right-sided craniotomy with a soft fluid- filled flap of the right parietal/temporal region of head) - Neck Neck: Supple w/out meningeal sx. No: Adenopathy - Cardiac Cardiac: Abnormal Rhythm, Irregularly irregular, Radial strong equal, Pedal strong equal, Cap refill < 2 sec - Respiratory Respiratory: Clear to ausultation adrián. No: Distress, Labored - Abdomen Abdomen: Normal Bowel sounds, Tender to palpation (generalized tenderness, but non focal). No: Rebound, Guarding - Derm Derm: Normal color, Warm and dry. No: Petecchiae, Purpura - Extremities Extremities: Left arm (minimal movement; left hand contracted at wrist) - Neuro Neuro: Alert and Oriented X 3 (baseline left sided weakness), Normal Sensation, Normal Speech. No: Confused, Lethargic - GCS Eye Opening: Spontaneous Motor: Obeys Commands Verbal: Oriented Total: 15 Results - Vitals Vitals: Vital Signs - 24 hr 09/14/19 09/14/19 09/14/19 13:31 14:05 15:27 Temperature 36.8 C Heart Rate 78 69 66 Respiratory 16 23 26 H Rate Blood Pressure 115/65 101/72 117/63 O2 Saturation 98 94 96 09/14/19 17:00 Temperature Heart Rate 73 Respiratory 19 Rate Blood Pressure 113/60 O2 Saturation 95 Oxygen O2 Source Room air - EKG (time done) 1339 Rate: Rate (enter#) (65) Rhythm: Atrial fibrillation QRS: Normal Ischemia: Normal ST segments Compare to prior EKG: Unchanged from prior EKG (atrial fibrillation) - Labs Labs: Laboratory Tests 09/14/19 09/14/19 09/14/19 13:15 13:55 13:55 WBC 9.4 RBC 4.30 Hgb 13.4 Hct 43.3 MCV 100.7 H MCH 31.2 H MCHC 30.9 L RDW 14.4 Plt Count 161 MPV 11.0 H Neut # (Auto) 5.5 Lymph # (Auto) 2.7 [place] # (Auto) 0.9 Eos # (Auto) 0.2 Baso # (Auto) 0.1 Absolute Nucleated RBC 0.00 Nucleated RBC % 0.0 PT 31.7 H INR 3.0 H Sodium 142 Potassium 3.7 Chloride 107 Carbon Dioxide 28 Anion Gap 7.0 BUN 24 H Creatinine 0.8 Estimated GFR (MDRD) 73 L Glucose 100 Lactic Acid Calcium 9.5 Troponin I High Sens Urine Color Urine Clarity Urine pH Ur Specific [place] Urine Protein Urine Glucose (UA) Urine Ketones Urine Occult Blood Urine Nitrite Urine Bilirubin Urine Urobilinogen Ur Leukocyte Esterase Ur Microscopic Review Urine Culture Comments 09/14/19 09/14/19 09/14/19 13:58 14:29 14:50 WBC RBC Hgb Hct MCV MCH MCHC RDW Plt Count MPV Neut # (Auto) Lymph # (Auto) [place] # (Auto) Eos # (Auto) Baso # (Auto) Absolute Nucleated RBC Nucleated RBC % PT INR Sodium Potassium Chloride Carbon Dioxide Anion Gap BUN Creatinine Estimated GFR (MDRD) Glucose Lactic Acid 1.5 Calcium Troponin I High Sens 5.3 Urine Color DARK YELLOW Urine Clarity CLEAR Urine pH 5.0 Ur Specific [place] >=1.030 H Urine Protein NEGATIVE Urine Glucose (UA) NEGATIVE Urine Ketones NEGATIVE Urine Occult Blood NEGATIVE Urine Nitrite NEGATIVE Urine Bilirubin NEGATIVE Urine Urobilinogen 0.2 (NORMAL) Ur Leukocyte Esterase NEGATIVE Ur Microscopic Review NOT INDICATED Urine Culture Comments NOT INDICATED - Rads (name of study) CT head Radiology: Final report received (Interval right-sided craniectomy with extensive encephalomalacia involving the right frontal parietal and temporal lobes and overlying CSF density area deep to the surgical site suggestive of cystic hygroma. Ex vacuo dilation of right lateral ventricle and 6 to 7 mm midline shift to the right) PD MEDICAL DECISION MAKING - ED course Complexity details: reviewed old records, reviewed results, considered differential, d/w patient ED course: 59-year-old female who has a history of CVA 7 months ago presents to the emergency department feeling fatigued and having documented hypotension at home the last 2 days. She has been currently receiving abx for a known urinary tract infection - Her labs are reviewed. She has no findings today consistent with a urinary t ract infection. She is not anemic. She has no leukocytosis. Her INR today of 3 is consistent with appropriate anticoagulation. She has no findings consistent with acute exsanguination or uncontrolled bleeding. - Patient has a history of a right-sided craniotomy in February of this year secondary to a stroke. She does report worsening headache over the last few days. The CT scan shows a large area of encephalomalacia as well as overlying CSF suggestive of a cystic hygroma. But there is concern of dilation of the lateral ventricles with midline shift of about 7 mm to the right. - 1700: I have asked to speak with neurosurgery at [facility] to discuss CT findings - 1750: I have spoken with Dr. Reynolds at [facility]. I discussed the CT findings with him. He feels the patient should be transported to [place] to either have the swelling and cerebrospinal fluid drained and or consider replacement of the bone flap. - Though the chief complaint for presentation to the emergency department with hypotension. Patient has had no vital sign abnormalities here in the emergency department. She is hemodynamically stable for transport and can go via S. _ have attempted to caontact pt's daughter multiple time to discuss the ED visit and now plans to transfer her Mom to [facility]. I left a voice mail to call back Departure - Departure Disposition: 02 Transfer Acute Care Hosp Clinical Impression: H/O craniotomy Hydrocephalus Qualifiers: Hydrocephalus type: in other disease Qualified Code(s): G91.4 - Hydrocephalus in diseases classified elsewhere Condition: Stable
[2019-09-14] MEDS ORDERED: HYDROmorphone 1 MG/ML CARPUJECT IVP STA ×4 (14:25→22:11)
[2019-09-14 15:00] LABS: BILIRUBIN,URINE NEGATIVE (NEGATIVE); GLUCOSE, URINE (UA) NEGATIVE (NEGATIVE); KETONES,URINE (UA) NEGATIVE (NEGATIVE); LEUKOCYTE ESTERASE, URINE NEGATIVE (NEGATIVE); NITRITE,URINE NEGATIVE (NEGATIVE); OCCULT BLOOD,URINE NEGATIVE (NEGATIVE); PROTEIN,URINE NEGATIVE (NEGATIVE); UROBILINOGEN,URINE 0.2 (NORMAL) E.U./dL (NORMAL)
[2019-09-14 15:05] LABS: CLARITY,URINE CLEAR (CLEAR)
--- NOTE | 2019-09-14 15:05 | XRAY Report ---
PROCEDURE: Chest 1 View X-Ray INDICATIONS: chest pain TECHNIQUE: One view of the chest was acquired. COMPARISON: 03/07/2019 FINDINGS: Surgical changes and devices: None. Lungs and pleura: No pleural effusions or pneumothorax. Linear scarring/atelectasis in right midlung field is seen. No focal infiltrate. Mediastinum: Mediastinal contours appear normal. Heart size is enlarged. Bones and chest wall: No suspicious bony lesions. Overlying soft tissues appear unremarkable. IMPRESSION: No acute cardiopulmonary pathology. Reviewed by: Brando Vieira MD on 09/14/2019 3:03 PM PDT Approved by: Brando Vieira MD on 09/14/2019 3:03 PM PDT Station ID: [id number]
[2019-09-14 15:27] LABS: PT - PROTHROMBIN TIME 31.7 secs (9.9-12.6)
--- NOTE | 2019-09-14 16:29 | CT Report ---
PROCEDURE: HEAD WO INDICATIONS: hedache TECHNIQUE: Noncontrast 4.5 mm thick angled axial sections acquired from the foramen magnum to the vertex. For r adiation dose reduction, the following was used: automated exposure control, adjustment of mA and/or kV according to patient size. COMPARISON: 03/07/2019. FINDINGS: Image quality: Excellent. CSF spaces: Basal cisterns are patent. CSF density deep to the right frontal temporal parietal crani ectomy site is seen. Brain: Patient is status post interval right frontoparietal craniectomy. Extensive encephalomalacia in right frontal, parietal and temporal lobes are seen with ex vacuo dilatation of right lateral vent ricle. There is 6 to 7 mm midline shift to the right. No intracranial masses or hemorrhage. Riggins-whi te matter interface is normal. Skull and face: Calvarium and visualized facial bones show no acute abnormality. Sinuses: Visualized sinuses and mastoids are clear. IMPRESSION: 1. Interval right sided craniectomy with extensive encephalomalacia involving right frontal, parietal and temporal lobes and overlying CSF density area deep to the surgical site suggestive of cystic hyg kelsey. 2. There is ex vacuo dilatation of right lateral ventricle and 6 to 7 mm midline shift to the right. Comparison with prior immediate postop images can be helpful. 3. No acute intracranial bleed or mass effect. Reviewed by: Brando Vieira MD on 09/14/2019 4:28 PM PDT Approved by: Brando Vieira MD on 09/14/2019 4:28 PM PDT Station ID: [id number]
[2019-09-14] MEDS ORDERED: oxyCODONE 5 MG TABLET PO STA (17:55)
[2019-09-14] MEDS ORDERED: fentaNYL 100 MCG/2 ML VIAL IVP STA (19:29)
[2019-09-14] MEDS ORDERED: ONDANSETRON 4 MG/2 ML VIAL IVP STA (20:03)
[2019-09-14 23:24] VITALS: BP 124/95
[2019-09-15] MEDS ORDERED: HYDROmorphone 1 MG/ML CARPUJECT IVP STA (00:03)
[2019-09-15] MEDS ORDERED: LORazepam 2 MG/ML VIAL IVP STA (00:03)
[2019-09-15] MEDS ORDERED: LORazepam 0.5 MG TABLET PO STA (00:07)
== END 2019-09-15 01:18 | disposition short-term general hospital (02) ==
LOC: EDUNIT# → ED 13:23
DX: G93.89 Other specified disorders of brain (principal); G91.4 Hydrocephalus in diseases classified elsewhere; I69.354 Hemiplegia and hemiparesis following cerebral infarction affecting left non-dominant side; Z98.890 Other specified postprocedural states; I10 Essential (primary) hypertension; I48.91 Unspecified atrial fibrillation; Z79.01 Long term (current) use of anticoagulants; J44.9 Chronic obstructive pulmonary disease, unspecified; F17.200 Nicotine dependence, unspecified, uncomplicated
CPT/HCPCS: 36415; 70450; 71045; 80048; 81003; 83605; 84484; 85025; 85610; 87040; 93005; 96361; 96374; 96375; 96376; 99284; 99285; A9270; J1170; 81001; 87086

== ENCOUNTER 2019-09-15 01:19 | Outpatient (CLI) | payer MEDICAID | END 2019-09-15 01:20 | disposition short-term general hospital (02) | LOC: EMS 01:19 | PROVIDERS: ATTEND Surgery | DX: G91.9 Hydrocephalus, unspecified (principal) | CPT/HCPCS: A0425; A0428 ==

== ENCOUNTER 2019-10-21 14:00 | Outpatient (CLI) | payer MEDICAID, OTHER ==
[2019-10-21 19:44] LABS: BILIRUBIN,URINE NEGATIVE (NEGATIVE); GLUCOSE, URINE (UA) NEGATIVE (NEGATIVE); KETONES,URINE (UA) NEGATIVE (NEGATIVE); LEUKOCYTE ESTERASE, URINE SMALL (NEGATIVE); NITRITE,URINE POSITIVE (NEGATIVE); OCCULT BLOOD,URINE NEGATIVE (NEGATIVE); PH,URINE 7.5 PH (5.0-7.5); PROTEIN,URINE NEGATIVE (NEGATIVE); UROBILINOGEN,URINE 0.2 (NORMAL) E.U./dL (NORMAL)
[2019-10-21 19:53] LABS: CLARITY,URINE HAZY (CLEAR)
[2019-10-21 19:59] LABS: AMORPHOUS SEDIMENT,UR Moderate /LPF; BACTERIA,URINE Many /HPF (None Seen); RBC,URINE 0-5 /HPF (0-5); SQUAMOUS EPITHELIAL CELL,UR RARE Squamous (<= Few)
== END 2019-10-21 23:59 | disposition home or self-care (01) ==
LOC: LAB.R 14:00
DX: N39.0 Urinary tract infection, site not specified (principal)
CPT/HCPCS: 81001; 81003

== ENCOUNTER 2019-10-26 23:50 | Outpatient (CLI) | payer MEDICAID ==
[2019-10-27 08:17] LABS: BILIRUBIN,URINE NEGATIVE (NEGATIVE); GLUCOSE, URINE (UA) NEGATIVE (NEGATIVE); KETONES,URINE (UA) NEGATIVE (NEGATIVE); LEUKOCYTE ESTERASE, URINE LARGE (NEGATIVE); NITRITE,URINE POSITIVE (NEGATIVE); OCCULT BLOOD,URINE SMALL (NEGATIVE); PROTEIN,URINE NEGATIVE (NEGATIVE); UROBILINOGEN,URINE 0.2 (NORMAL) E.U./dL (NORMAL)
[2019-10-27 08:19] LABS: CLARITY,URINE CLOUDY (CLEAR)
[2019-10-27 08:32] LABS: BACTERIA,URINE Many /HPF (None Seen); SQUAMOUS EPITHELIAL CELL,UR NONE SEEN (<= Few); WBC CLUMPS,URINE PRESENT
== END 2019-10-26 23:59 | disposition home or self-care (01) ==
LOC: LAB.R 23:50
PROVIDERS: ATTEND Family Medicine
DX: N39.0 Urinary tract infection, site not specified (principal)
CPT/HCPCS: 81001; 81003; 87077; 87086; 87181

== ENCOUNTER 2019-12-01 14:45 | Outpatient (CLI) | payer MEDICAID ==
[2019-12-01 15:34] LABS: BASOPHILS # (AUTO) 0.1 10^3/uL (0.0-0.1); BASOPHILS % (AUTO) 0.6 %; EOSINOPHILS # (AUTO) 0.2 10^3/uL (0.0-0.7); EOSINOPHILS % (AUTO) 1.7 %; HGB - HEMOGLOBIN 14.8 g/dL (12.0-16.0); LYMPHOCYTES % (AUTO) 33.8 %; MEAN CORPUSCULAR HEMOGLOBIN 32.2 pg (27.0-31.0); MEAN CORPUSCULAR HGB CONC 33.6 g/dL (32.0-36.0); MEAN CORPUSCULAR VOLUME 95.9 fL (81.0-99.0); MONOCYTES # (AUTO) 0.6 10^3/uL (0.0-1.0); MONOCYTES % (AUTO) 7.2 %; NEUTROPHILS % (AUTO) 56.3 %; PLT - PLATELET COUNT 187 10^3/uL (130-450); RED BLOOD COUNT 4.59 10^6/uL (4.20-5.40); RED CELL DISTRIBUTION WIDTH 13.2 % (12.0-15.0); WHITE BLOOD COUNT 8.9 x10^3/uL (4.8-10.8)
[2019-12-01 15:55] LABS: CALCIUM 9.7 mg/dL (8.5-10.3); CREATININE 0.7 mg/dL (0.4-1.0)
== END 2019-12-01 23:59 | disposition home or self-care (01) ==
LOC: LAB.R 14:45
DX: E78.5 Hyperlipidemia, unspecified (principal); R11.2 Nausea with vomiting, unspecified; M62.81 Muscle weakness (generalized); I48.91 Unspecified atrial fibrillation
CPT/HCPCS: 80048; 85025

== ENCOUNTER 2019-12-11 08:00 | Outpatient (CLI) | payer MEDICAID ==
[2019-12-11 08:05] LABS: BASOPHILS # (AUTO) 0.1 10^3/uL (0.0-0.1); BASOPHILS % (AUTO) 0.8 %; EOSINOPHILS # (AUTO) 0.1 10^3/uL (0.0-0.7); EOSINOPHILS % (AUTO) 1.8 %; HGB - HEMOGLOBIN 15.2 g/dL (12.0-16.0); LYMPHOCYTES # (AUTO) 3.5 10^3/uL (1.5-3.5); LYMPHOCYTES % (AUTO) 45.5 %; MEAN CORPUSCULAR HGB CONC 33.9 g/dL (32.0-36.0); MEAN CORPUSCULAR VOLUME 97.2 fL (81.0-99.0); MEAN PLATELET VOLUME 11.6 fL (7.9-10.8); MONOCYTES # (AUTO) 0.5 10^3/uL (0.0-1.0); MONOCYTES % (AUTO) 6.5 %; NEUTROPHILS # (AUTO) 3.5 10^3/uL (1.5-6.6); PLT - PLATELET COUNT 156 10^3/uL (130-450); RED BLOOD COUNT 4.61 10^6/uL (4.20-5.40); RED CELL DISTRIBUTION WIDTH 13.4 % (12.0-15.0); WHITE BLOOD COUNT 7.7 x10^3/uL (4.8-10.8)
[2019-12-11 08:34] LABS: BUN - BLOOD UREA NITROGEN 20 mg/dL (6-20); CALCIUM 9.4 mg/dL (8.5-10.3); CARBON DIOXIDE - CO2 24 mmol/L (21-32); CHLORIDE 109 mmol/L (101-111); CHOLESTEROL 106 mg/dL; CREATININE 0.7 mg/dL (0.4-1.0); GLUCOSE 86 mg/dL (70-100); HDL CHOLESTEROL 35 mg/dL; LDL CHOLESTEROL,CALCULATED 52 mg/dL; LDL/HDL RATIO 1.5 (<4.4); SODIUM 142 mmol/L (135-145); VLDL CHOLESTEROL 19 mg/dL
== END 2019-12-11 23:59 | disposition home or self-care (01) ==
LOC: LAB.R 08:00
PROVIDERS: ATTEND Family Medicine
DX: E78.5 Hyperlipidemia, unspecified (principal); I69.354 Hemiplegia and hemiparesis following cerebral infarction affecting left non-dominant side; N39.0 Urinary tract infection, site not specified
CPT/HCPCS: 80048; 80061; 81001; 81003; 82728; 83721; 85025; 87086

== ENCOUNTER 2019-12-11 11:30 | Outpatient (CLI) | payer MEDICAID ==
[2019-12-12 08:41] LABS: BILIRUBIN,URINE NEGATIVE (NEGATIVE); GLUCOSE, URINE (UA) NEGATIVE (NEGATIVE); KETONES,URINE (UA) NEGATIVE (NEGATIVE); LEUKOCYTE ESTERASE, URINE LARGE (NEGATIVE); NITRITE,URINE POSITIVE (NEGATIVE); OCCULT BLOOD,URINE MODERATE (NEGATIVE); PH,URINE 6.5 PH (5.0-7.5); PROTEIN,URINE 100 mg/dL (NEGATIVE); UROBILINOGEN,URINE 0.2 (NORMAL) E.U./dL (NORMAL)
[2019-12-12 08:47] LABS: CLARITY,URINE CLOUDY (CLEAR)
[2019-12-12 08:48] LABS: BACTERIA,URINE Moderate /HPF (None Seen); SQUAMOUS EPITHELIAL CELL,UR RARE Squamous (<= Few); WBC CLUMPS,URINE PRESENT
== END 2019-12-11 23:59 | disposition home or self-care (01) ==
LOC: LAB.R 11:30
DX: N39.0 Urinary tract infection, site not specified (principal); R30.0 Dysuria; F22 Delusional disorders; R41.0 Disorientation, unspecified
CPT/HCPCS: 81001; 81003; 87077; 87086; 87181

== ENCOUNTER 2020-02-06 13:46 | Outpatient (CLI) | payer MEDICAID ==
--- NOTE | 2020-02-08 10:33 | Mammography Report ---
BILATERAL DIGITAL SCREENING MAMMOGRAM: 02/06/2020 CLINICAL: Routine screening. Comparison is made to exams dated: 03/07/2013 mammogram - [facility], 12/22/2018 mammogram, and 01/06/2019 mammogram - [facility]. There are scattered f ibroglandular elements in both breasts. There is a possible an oval equal density asymmetry with grouped dystrophic calcifications in the lef t breast middle depth medial region seen on the craniocaudal view only. This is more prominent and i ncreased in size. There also is a possible an irregular equal density asymmetry with grouped heterogeneous calcificatio ns in the left breast posterior depth medial region seen on the craniocaudal view only. This is more prominent and increased in size. No other significant masses, calcifications, or other findings are seen in either breast. IMPRESSION: INCOMPLETE: NEEDS ADDITIONAL IMAGING EVALUATION The possible oval equal density asymmetry in the left breast middle depth medial region seen on the c raniocaudal view only is indeterminate. Mediolateral and spot magnification views as well as additio nal views with possible ultrasound are recommended. The possible irregular equal density asymmetry in the left breast posterior depth medial region seen on the craniocaudal view only is indeterminate. Mediolateral and spot magnification views as well as additional views with possible ultrasound are recommended. This exam was interpreted at Station ID: [id number]. NOTE: For mammograms, a report in lay terms will be sent to the patient. Approximately 15% of breast malignancies will not be visualized mammographically. In the management of a palpable breast mass, a negative mammogram must not discourage biopsy of a clinically suspicious lesion. Electronically Signed By: Nathaniel Dumont M.D. aty/:02/08/2020 10:03:38 ACR BI-RADS Category 0: Incomplete 3340F PARENCHYMAL PATTERN: (A) - The breast(s) demonstrate(s) scattered fibroglandular densities. BI-RADS CATEGORY: (0) - 0 Mammo and US [id number] Immediate follow-up LATERALITY: (L)
== END 2020-02-06 13:47 | disposition home or self-care (01) ==
LOC: DI 13:46
DX: Z12.31 Encounter for screening mammogram for malignant neoplasm of breast (principal); R92.8 Other abnormal and inconclusive findings on diagnostic imaging of breast
CPT/HCPCS: 77067

== ENCOUNTER 2020-03-20 14:55 | Outpatient (CLI) | payer MEDICAID ==
[2020-03-20 15:20] LABS: BASOPHILS # (AUTO) 0.1 10^3/uL (0.0-0.1); BASOPHILS % (AUTO) 0.9 %; EOSINOPHILS # (AUTO) 0.3 10^3/uL (0.0-0.7); EOSINOPHILS % (AUTO) 2.9 %; HGB - HEMOGLOBIN 13.6 g/dL (12.0-16.0); LYMPHOCYTES # (AUTO) 3.5 10^3/uL (1.5-3.5); LYMPHOCYTES % (AUTO) 37.8 %; MEAN CORPUSCULAR HEMOGLOBIN 32.5 pg (27.0-31.0); MEAN CORPUSCULAR HGB CONC 33.2 g/dL (32.0-36.0); MEAN CORPUSCULAR VOLUME 98.1 fL (81.0-99.0); MEAN PLATELET VOLUME 11.1 fL (7.9-10.8); MONOCYTES # (AUTO) 0.7 10^3/uL (0.0-1.0); NEUTROPHILS # (AUTO) 4.6 10^3/uL (1.5-6.6); NEUTROPHILS % (AUTO) 50.2 %; PLT - PLATELET COUNT 209 10^3/uL (130-450); RED BLOOD COUNT 4.18 10^6/uL (4.20-5.40); RED CELL DISTRIBUTION WIDTH 12.9 % (12.0-15.0); WHITE BLOOD COUNT 9.2 x10^3/uL (4.8-10.8)
[2020-03-20 15:32] LABS: ALBUMIN 3.5 g/dL (3.2-5.5); BILIRUBIN,TOTAL 0.6 mg/dL (0.2-1.0); CALCIUM 9.3 mg/dL (8.5-10.3); CREATININE 0.6 mg/dL (0.4-1.0); TOTAL PROTEIN 6.9 g/dL (6.7-8.2)
== END 2020-03-20 23:59 | disposition home or self-care (01) ==
LOC: LAB.R 14:55
DX: I10 Essential (primary) hypertension (principal); G62.9 Polyneuropathy, unspecified
CPT/HCPCS: 80053; 85025

== ENCOUNTER 2020-04-10 10:43 | Outpatient (CLI) | payer MEDICAID ==
--- NOTE | 2020-04-12 14:42 | Ultrasound Report ---
LIMITED ULTRASOUND OF LEFT BREAST: 04/10/2020 CLINICAL: Patient returns for magnification views of microcalcifications in the left breast. Comparison is made to exams dated: 04/10/2020 mammogram, 02/06/2020 mammogram - [facility], 01/06/2019 ultrasound, 01/06/2019 mammogram, 12/22/2018 [facility], and 03/07/2013 mammogram - [facility]. Color flow ultrasound of the left breast was performed. Riggins scale images of the real-time examinati on were reviewed. There is a new 0.7 cm x 0.2 cm x 0.5 cm oval fibroadenoma in the left breast at 3 o'clock posterior d epth 3 cm from the nipple with the long axis parallel to the skin. This oval fibroadenoma is hypoech oic. This correlates with mammography findings. IMPRESSION: PROBABLY BENIGN The new 0.7 cm x 0.2 cm x 0.5 cm oval fibroadenoma in the left breast is probably benign. Follow-up mammogram and ultrasound in 6 months is recommended. A follow-up left mammogram and an ultrasound in 6 months is recommended to demonstrate stability. This exam was interpreted at Station ID: [id number]. Electronically Signed By: Beka Lamb acr/:04/10/2020 13:00:21 Ultrasound BI-RADS: 3 Probably benign BI-RADS CATEGORY: (3) - 3 Mammo and [place] [id number] 6 month follow-up LATERALITY: (L)
--- NOTE | 2020-04-12 14:49 | Mammography Report ---
UNILATERAL LEFT DIGITAL DIAGNOSTIC MAMMOGRAM 3D/2D: 04/10/2020 CLINICAL: Patient returns for magnification views of microcalcifications in the left breast. Comparison is made to exams dated: 02/06/2020 mammogram - [facility], 01/06/2019 m ammogram - [facility], 03/07/2013 mammogram - [facility], and 12/22/2018 mammogram - [facility]. There are scattered fibroglandular elements in left breast. There is a possible 0.7 cm x 0.8 cm irregular equal density asymmetry with grouped heterogeneous calc ifications in the left breast posterior depth medial region seen on the craniocaudal view only 10 cm from the skin. The benign oval equal density asymmetry in the left breast middle depth medial region seen on the aircraft lay out worker niocaudal view only is no longer seen. Do to techincal factors with the patient's mobility limited images were obtained. No other significant masses or calcifications are seen in the breast. IMPRESSION: INCOMPLETE: NEEDS ADDITIONAL IMAGING EVALUATION The possible 0.7 cm x 0.8 cm irregular equal density asymmetry in the left breast posterior depth med ial region seen on the craniocaudal view only is indeterminate. An ultrasound is recommended. This exam was interpreted at Station ID: [id number]. NOTE: For mammograms, a report in lay terms will be sent to the patient. Approximately 15% of breast malignancies will not be visualized mammographically. In the management of a palpable breast mass, a negative mammogram must not discourage biopsy of a clinically suspicious lesion. Electronically Signed By: Beka Lamb acr/:04/10/2020 12:10:55 ACR BI-RADS Category 0: Incomplete 3340F PARENCHYMAL PATTERN: (A) - The breast(s) demonstrate(s) scattered fibroglandular densities. BI-RADS CATEGORY: (0) - 0 Ultrasound [id number] Immediate follow-up LATERALITY: (B)
== END 2020-04-10 10:44 | disposition home or self-care (01) ==
LOC: DI 10:43
PROVIDERS: ATTEND Family Medicine
DX: D24.2 Benign neoplasm of left breast (principal)